=== PATIENT | female | born 1990 | race Two or more races ===

== ENCOUNTER → 2020-10-14 | Outpatient (CLI) | payer MEDICAID, OTHER ==
[~2020-10-14] MED LIST: DOCU-109 PO; FERR325T14 PO; IBUP-1060 PO; OXYC1TAB15 PO
== END ==
LOC: LAB 13:23
PROVIDERS: ATTEND Obstetrics & Gynecology
DX: Z01.812 Encounter for preprocedural laboratory examination (principal); Z20.822 Contact with and (suspected) exposure to COVID-19
CPT/HCPCS: U0003

== ENCOUNTER 2020-10-19 09:33 | Inpatient (IN) | payer MEDICAID ==
[~2020-10-19] VITALS: Ht 170.2 cm; Wt 80.3 kg
[2020-10-19] VITALS (8 sets, daily range): BP systolic 96–104; BP diastolic 53–65
[2020-10-19] MEDS ORDERED: TERBUTALINE 1 MG/ML VIAL. SQ PRN (10:00)
[2020-10-19] MEDS ORDERED: IV NORMAL SALINE 1000ML BAG 1,000 ML IV SCH ×2 (10:00→19:30)
[2020-10-19] MEDS ORDERED: LIDOCAINE 1% PF 30 ML VIAL. INJ PRN (10:00)
[2020-10-19] MEDS ORDERED: CITRIC ACID/SODIUM CITRATE 30 ML SOLUTION. PO ONE (10:00)
[2020-10-19] MEDS ORDERED: OXYTOCIN 30 UNIT/500 ML PREMIX 500 ML IV PRN ×2 (10:00→13:45)
[2020-10-19] MEDS ORDERED: 0.9 % SODIUM CHLORIDE 10 ML DISP.SYRIN. IV PRN ×2 (10:00→13:45)
[2020-10-19] MEDS ORDERED: BUTORPHANOL 2 MG/ML VIAL. IVP PRN (10:00)
[2020-10-19] MEDS ORDERED: ACETAMINOPHEN 325 MG TABLET. PO PRN ×2 (10:00→13:45)
[2020-10-19 10:32] LABS: BASO # 0.1 x10^3/uL (0.0-0.2); BASO % 1 % (0-3); EOS # 0.1 x10^3/uL (0.0-0.7); EOS % 2 % (0-3); HEMATOCRIT 30.7 % (36.0-47.0); HEMOGLOBIN 10.1 g/dL (12.0-15.5); LYMPH # 2.3 x10^3/uL (1.0-4.8); LYMPH % 26 % (24-48); MEAN CORPUSCULAR HEMOGLOBIN 27 pg (25-35); MEAN CORPUSCULAR HGB CONC 33 g/dL (31-37); MEAN CORPUSCULAR VOLUME 81 fL (79-100); MONO # 0.6 x10^3/uL (0.0-1.1); MONO % 7 % (0-9); NEUT # 5.7 x10^3/uL (1.8-7.7); NEUT % 64 % (31-73); PLATELET COUNT 233 x10^3/uL (140-400); RED BLOOD COUNT 3.78 x10^6/uL (3.50-5.40); RED CELL DISTRIBUTION WIDTH 14.8 % (11.5-14.5); WHITE BLOOD COUNT 8.8 x10^3/uL (4.0-11.0)
[2020-10-19] MEDS ORDERED: PHENYLEPHRINE in 0.9% NACL PF 1 MG/10 ML SYRINGE. IV ONE (10:49)
[2020-10-19] MEDS ORDERED: OXYTOCIN 10 UNIT/ML VIAL. ONE ×3 (10:49→12:41)
[2020-10-19] MEDS ORDERED: fentaNYL PF VIAL 100 MCG/2 ML VIAL ONE (10:49)
[2020-10-19] MEDS ORDERED: MORPHINE PF 10 MG/10 ML AMPUL. ONE (10:49)
[2020-10-19] MEDS ORDERED: 0.9 % SODIUM CHLORIDE 20 ML VIAL. IJ ONE (10:50)
--- NOTE | 2020-10-19 10:50 | PDOC1 ---
VEGETABLE PREPARER H&P Date of Admission: Date of Admission: Oct 19, 2020 at 09:33 History of Present Illness: EDC: 10/25/20 LMP: 01/19/20 29y @ 39.1 by L=21 presents for scheduled C/S. The pt first two deliveries were C/Ss in [facility]. The pt had a low-lying placenta which resolved 32wks. The pt also was positive for Covid in May. Otherwise the pt has had a relatively uncomplicated . PMH: Denies PSH: C/S x 2 Meds: PNV All: NKDA OBHx: TC/S x 2 SH: no tob, no EtOH FH: noncontributory Allergies: Coded Allergies: No Known Drug Allergies (Unverified , 10/19/20) Physical Exam: PE: GENERAL: No apparent distress. Alert and oriented. HEENT: Head normocephalic, atraumatic. NECK: Supple LUNGS: Clear to auscultation. HEART: RRR, S1, S2 present, pulses intact ABDOMEN: Soft, positive bowel sounds. EXTREMITIES: No cyanosis or edema. NEUROLOGIC: Normal speech, normal tone PSYCHIATRIC: Normal affect, normal mood. SKIN: No ulceration. FHT: 150s +acels/no decels/mLTV [place]: 15-20 min Labs: Laboratory Tests Test 10/19/20 10:02 White Blood Count 8.8 x10^3/uL (4.0-11.0) Red Blood Count 3.78 x10^6/uL (3.50-5.40) Hemoglobin 10.1 g/dL (12.0-15.5) L Hematocrit 30.7 % (36.0-47.0) L Mean Corpuscular Volume 81 fL (79-100) Mean Corpuscular Hemoglobin 27 pg (25-35) Mean Corpuscular Hemoglobin Concent 33 g/dL (31-37) Red Cell Distribution Width 14.8 % (11.5-14.5) H Platelet Count 233 x10^3/uL (140-400) Neutrophils (%) (Auto) 64 % (31-73) Lymphocytes (%) (Auto) 26 % (24-48) Monocytes (%) (Auto) 7 % (0-9) Eosinophils (%) (Auto) 2 % (0-3) Basophils (%) (Auto) 1 % (0-3) Neutrophils # (Auto) 5.7 x10^3/uL (1.8-7.7) Lymphocytes # (Auto) 2.3 x10^3/uL (1.0-4.8) Monocytes # (Auto) 0.6 x10^3/uL (0.0-1.1) Eosinophils # (Auto) 0.1 x10^3/uL (0.0-0.7) Basophils # (Auto) 0.1 x10^3/uL (0.0-0.2) Laboratory Tests 10/19/20 10:02 Laboratory Tests 10/19/20 10:02 Assessment & Plan: A/P 29y @ 39.1 by L=21 1.) Prev C/S x 2 scheduled for RLTCS/BTL 2.) DPS consent signed 09/06/20 3.) Low-lying anterior placenta - resolved 4.) H/o Covid 05/21/20 5.) Anemia Hgb 10.3 6.) Fetus cat I FHT 7.) GBS unk collect but specimen not sent 8.) TDAP 08/11/20 YELENA ANDERSON MD Oct 19, 2020 10:50
[2020-10-19] MEDS ORDERED: ONDANSETRON PF 4 MG/2 ML VIAL. ONE (10:56)
[2020-10-19] MEDS ORDERED: ceFAZolin 2GM PREMIX 2 GM/50 ML BAG IV ONE (11:00)
[2020-10-19] MEDS: IV RINGERS,LACTATED 1000ML 1,000 ML IV SCH ×5 (11:04→19:31)
[2020-10-19 11:49] LABS: BILIRUBIN,URINE NEGATIVE (NEG); COLOR,URINE YELLOW; NITRITE,URINE NEGATIVE (NEG); PH,URINE 7.5 (<5.0-8.0); PROTEIN,URINE NEGATIVE (NEG-TRACE); UROBILINOGEN,URINE 0.2 mg/dL (0.2 mg/dL)
[2020-10-19 11:55] LABS: CLARITY,URINE HAZY
[2020-10-19 11:58] LABS: BACTERIA,URINE MODERATE /HPF (0-FEW); RBC,URINE OCC /HPF (0-2)
--- NOTE | 2020-10-19 13:43 | PDOC4 ---
OPERATIVE NOTE: PreOp Dx: 1.) IUP @ 39.1 by L=21, 2.) Prev C/S x 2, 3.) DPS consent signed 09/06/20, 4.) Low-lying anterior placenta resolved, 5.) H/o Covid 05/21/20, 6.) Anemia, 7.) GBS unk PostOp Dx: same Procedure: RLTCS/BTL Surgeon: Steve Anderson Anesthesia: Spinal EBL: 700 cc Fluids: 1400 cc UOP: 350 cc Complications: None Findings: viable female delivered at 1220. Wt 7 lb 14 oz. APGARS 8/9. Nml appearing uterus, tubes and ovaries Path: Cord blood, bilateral tubal segments YELENA ANDERSON MD Oct 19, 2020 13:43
[2020-10-19] MEDS ORDERED: DOCUSATE SODIUM 100 MG CAPSULE. PO PRN (13:45)
[2020-10-19] MEDS ORDERED: MMR per PROTOCOL. MC PRN (13:45)
[2020-10-19] MEDS ORDERED: BENZOCAINE 20% TOPICAL AEROSOL SPRAY 57GM CAN. TP PRN (13:45)
[2020-10-19] MEDS ORDERED: oxyCODONE/APAP 5/325 1 TAB TABLET PO PRN (13:45)
[2020-10-19] MEDS ORDERED: diphenhydrAMINE ORAL ELIXIR 12.5 MG/5 ML ML PO PRN (13:45)
[2020-10-19] MEDS ORDERED: TDaP (Adacel) per PROTOCOL. MC PRN (13:45)
--- NOTE | 2020-10-19 14:07 | OP ---
DATE OF SURGERY: 10/19/2020 PREOPERATIVE DIAGNOSES: 1. Intrauterine at 39 weeks and 1 day by LMP equal to 21-week ultrasound. 2. Previous section x 2. 3. Desires permanent sterilization. 4. Low lying anterior placenta, resolved. 5. History of COVID on 05/21/2020 with negative screening on admission. 6. Anemia. 7. Group B Streptococcus unknown. POSTOPERATIVE DIAGNOSES: 1. Intrauterine at 39 weeks and 1 day by LMP equal to 21-week ultrasound. 2. Previous section x 2. 3. Desires permanent sterilization. 4. Low lying anterior placenta, resolved. 5. History of COVID on 05/21/2020 with negative screening on admission. 6. Anemia. 7. Group B Streptococcus unknown. PROCEDURE: Repeat low transverse with bilateral tubal ligation. SURGEON: Gary Anderson MD. ANESTHESIA: Spinal. ESTIMATED BLOOD LOSS: 700 mL. FLUIDS: 1400 mL. URINE OUTPUT: 350 mL. COMPLICATIONS: None. FINDINGS: Viable female delivered at 12:20 weighing 7 pounds 14 ounces with Apgars of 8 and 9. Normal appearing uterus, tubes and ovaries. PATHOLOGY: Cord blood and bilateral tubal segments. DESCRIPTION OF PROCEDURE: The patient was taken to the operating room where spinal anesthesia was placed without difficulty. The patient was prepped and draped in normal sterile fashion. A Pfannenstiel skin incision was made through her previous incision and carried down to underlying layer of fascia. The fascia was then nicked in the midline. The fascial incision was then extended laterally with Chao scissors. A superior aspect of fascial incision was then grasped with Sabina clamps, elevated and underlying rectus muscle was dissected off with the scalpel. Attention was then turned to the inferior aspect of fascial incision, which was grabbed with Sabina clamps, elevated and underlying rectus muscle was dissected off with Chao scissors. At that point, the midline of the rectus muscle was identified and . The peritoneum was then grasped with 2 hemostats, tented up and Metzenbaum scissors were used to enter the peritoneal cavity sharply. Digital examination of the peritoneal cavity revealed minimal adhesions. At that point, the peritoneal incision was then extended superiorly and inferiorly with good visualization of the bladder with traction and countertraction. At that point, Amando ring was then placed into the abdomen to better visualize the lower uterine segment. Metzenbaum scissors were used to create a bladder flap. At that point, the lower uterine segment was then incised in transverse fashion with the scalpel. The hysterotomy was then extended with traction and countertraction. The head was then flexed and brought to the hysterotomy. The rest of the infant was delivered atraumatically. The cord was double clamped and cut and infant was handed over to the awaiting metal weigher. Placenta was then removed manually. The uterus was then cleared of all clots and debris. Uterine incision was then repaired with #1 chromic in a running locked fashion. A second layer of the same suture was used to imbricate. Good hemostasis was noted. At that point, the uterus was exteriorized to allow for the tubal to be performed. The left tube was then identified and followed out to the fimbria. The tube was then grasped with a Scammon clamp. An opening was created in avascular portion of the mesosalpinx. Two free ties of 0 gut were used to ligate the tube. This 2 cm segment of the tube was then excised and sent to pathology. The edges were made hemostatic with the Bovie. Attention was then turned to the right tube, which was followed out to the fimbria. The Palak clamp was then placed on the tube and with the Bovie, an opening was created in avascular space of the mesosalpinx below the tube. At that point, 2 free ties of plain gut were again used to ligate this segment of the tube. This 2 cm segment of the tube was excised and sent to pathology. The tube was then made hemostatic with the Bovie. At that point, the uterus was returned to the abdomen. The gutters were copiously irrigated and cleared of all clots and debris. Reexamination of the tubal sites revealed good hemostasis. The Amando ring was then removed. The peritoneum was then closed with 2-0 Vicryl in a running fashion. The muscle was reapproximated with 2-0 Vicryl in a running fashion. The fascia was then closed with 0 Vicryl in a running fashion. The skin was then closed with 3-0 Monocryl in subcuticular manner. The patient tolerated the procedure well. Sponges, laps, and needles were correct x 3. Two grams of Ancef were given prior to procedure. The patient tolerated the procedure well and was taken to recovery room in stable condition. GARY ANDERSON MD DR: TELLO/raj JOB#: [id number] / [id number]
[2020-10-19] MEDS: KETOROLAC 30 MG/ML VIAL. IVP PRN ×2 (14:19→21:46)
--- NOTE | 2020-10-19 16:00 | NUR ---
Pt to room 343 per bed from L&D. Assessment completed at 1620, frequent VS started and call light within reach of patient. Pt. denied desire for ice chips or ice water at this time. Will continue to monitor and support.
[2020-10-19] MEDS: FERROUS SULFATE 325 MG TABLET. PO SCH (17:00)
[2020-10-20] VITALS (7 sets, daily range): BP systolic 86–111; BP diastolic 45–62
[2020-10-20] MEDS: FERROUS SULFATE 325 MG TABLET. PO SCH ×2 (07:50→16:36)
[2020-10-20] MEDS: PRENATAL MULTIVITAMIN TABLET. PO SCH (07:50)
[2020-10-20] MEDS: IBUPROFEN 400 MG TABLET. PO PRN ×2 (07:51→16:36)
[2020-10-20] MEDS: oxyCODONE/APAP 5/325 1 TAB TABLET PO PRN (07:51)
[2020-10-20 08:32] LABS: HEMATOCRIT 27.4 % (36.0-47.0); HEMOGLOBIN 8.9 g/dL (12.0-15.5); RED BLOOD COUNT 3.36 x10^6/uL (3.50-5.40); RED CELL DISTRIBUTION WIDTH 14.9 % (11.5-14.5); WHITE BLOOD COUNT 7.6 x10^3/uL (4.0-11.0)
[2020-10-20] MEDS ORDERED: MULTIVITAMIN with MINERAL TABLET. PO SCH (09:00)
--- NOTE | 2020-10-20 11:46 | PDOC ---
MANUFACTURING FINANCE MANAGER PROGRESS NOTE Date of Service: DATE: 10/20/20 TIME: 11:45 Subjective: Pt with good pain control. Mariah PO. Voiding. Minimal lochia Objective: Vital Signs: Vital Signs Date Time Temp Pulse Resp B/P (MAP) Pulse Ox O2 Delivery O2 Flow Rate FiO2 10/19/20 16:20 98.5 75 18 99/59 (72) 97 Room Air 98.5 Vital Signs Date Time Temp Pulse Resp B/P (MAP) Pulse Ox O2 Delivery O2 Flow Rate FiO2 10/20/20 08:51 97 Room Air 10/20/20 07:45 98.4 77 16 97/55 (69) 98.4 Labs: Laboratory Tests Test 10/20/20 08:23 White Blood Count 7.6 x10^3/uL (4.0-11.0) Red Blood Count 3.36 x10^6/uL (3.50-5.40) L Hemoglobin 8.9 g/dL (12.0-15.5) L Hematocrit 27.4 % (36.0-47.0) L Mean Corpuscular Volume 82 fL (79-100) Mean Corpuscular Hemoglobin 27 pg (25-35) Mean Corpuscular Hemoglobin Concent 33 g/dL (31-37) Red Cell Distribution Width 14.9 % (11.5-14.5) H Platelet Count 186 x10^3/uL (140-400) Laboratory Tests 10/20/20 08:23 Laboratory Tests 10/20/20 08:23 Physical Exam: GENERAL: No apparent distress. Alert and oriented. HEENT: Head normocephalic, atraumatic. NECK: Supple LUNGS: Clear to auscultation. HEART: RRR, S1, S2 present, pulses intact ABDOMEN: Soft, positive bowel sounds. EXTREMITIES: No cyanosis or edema. NEUROLOGIC: Normal speech, normal tone PSYCHIATRIC: Normal affect, normal mood. SKIN: No ulceration. FFNT below umb Inc: C/D/I No C/C/E Assessment & Plan: A/P 29y POD #1 s/p RLTCS/BTL 1.) PO doing well 2.) H/o Covid 05/21/20 screen neg for admission 3.) Anemia Hgb 10.1 -> 8.9 4.) TDAP 08/11/20 5.) Cont PO care ANDERSON,YELENA B MD Oct 20, 2020 11:46
--- NOTE | 2020-10-20 15:09 | NUR ---
Patients dressing was removed today by Dr Freeman. Incision intact with no signs of dehiscence noted. No new drainage noted at this time. lap machine tender to the touch. Will continue to monitor.
[2020-10-21 00:05] VITALS: BP 104/63
[2020-10-21] MEDS: IBUPROFEN 400 MG TABLET. PO PRN ×2 (00:52→07:59)
[2020-10-21 05:58] VITALS: BP 99/63
[2020-10-21] MEDS: PRENATAL MULTIVITAMIN TABLET. PO SCH (07:57)
[2020-10-21] MEDS: FERROUS SULFATE 325 MG TABLET. PO SCH (07:57)
[2020-10-21] MEDS: oxyCODONE/APAP 5/325 1 TAB TABLET PO PRN (07:58)
[2020-10-21] MEDS ORDERED: OXYC1TAB15 PO (10:16)
[2020-10-21] MEDS ORDERED: DOCU-109 PO (10:16)
[2020-10-21] MEDS ORDERED: FERR325T14 PO (10:16)
[2020-10-21] MEDS ORDERED: IBUP-1060 PO (10:16)
--- NOTE | 2020-10-21 10:37 | PDOC ---
TOUR COORDINATOR PROGRESS NOTE Date of Service: DATE: 10/21/20 TIME: 10:36 Subjective: Pt with good pain control. Mariah PO. Voiding. Minimal lochia Objective: Vital Signs: Vital Signs Date Time Temp Pulse Resp B/P (MAP) Pulse Ox O2 Delivery O2 Flow Rate FiO2 10/20/20 07:45 98.4 77 16 97/55 (69) 97 98.4 10/20/20 07:51 Room Air Vital Signs Date Time Temp Pulse Resp B/P (MAP) Pulse Ox O2 Delivery O2 Flow Rate FiO2 10/21/20 07:58 18 Room Air 10/21/20 05:58 98.4 73 99/63 (75) 95 98.4 Physical Exam: GENERAL: No apparent distress. Alert and oriented. HEENT: Head normocephalic, atraumatic. NECK: Supple LUNGS: Clear to auscultation. HEART: RRR, S1, S2 present, pulses intact ABDOMEN: Soft, positive bowel sounds. EXTREMITIES: No cyanosis or edema. NEUROLOGIC: Normal speech, normal tone PSYCHIATRIC: Normal affect, normal mood. SKIN: No ulceration. FFNT below umb Inc: C/D/I No C/C/E Assessment & Plan: A/P 29y POD #2 s/p RLTCS/BTL 1.) PO doing well 2.) H/o Covid 05/21/20 screen neg for admission 3.) Anemia Hgb 10.1 -> 8.9 4.) TDAP 08/11/20 5.) Cont PO care YELENA ANDERSON MD Oct 21, 2020 10:37
[2020-10-21 14:00] VITALS: BP 101/59
--- NOTE | 2020-10-21 14:45 | NUR ---
Discharge and follow up instructions reviewed and given to patient along with RX x4. Pt denied any complaints or questions at this time. Pt taken out of the hospital per w/c with her S/o and her by her side.
--- NOTE | 2020-10-22 08:45 | DS ---
DATE OF DISCHARGE: 10/21/2020 ADMISSION DIAGNOSES: 1. Intrauterine at 39 weeks and 1 day by LMP equal to a 20-week ultrasound. 2. Previous section x 2. 3. Desires permanent sterilization. 4. Low anterior placenta, resolved. 5. History of COVID in May with negative screen on admission. 6. Anemia. 7. GBS unknown. DISCHARGE DIAGNOSES: 1. Intrauterine at 39 weeks and 1 day by LMP equal to a 20-week ultrasound. 2. Previous section x 2. 3. Desires permanent sterilization. 4. Low anterior placenta, resolved. 5. History of COVID in May with negative screen on admission. 6. Anemia. 7. GBS unknown. PROCEDURE: Repeat lower transverse with bilateral tubal ligation. BRIEF HOSPITAL COURSE: The patient is a 29-year-old 3, para 2-0-0-2, at 39 weeks and 1 day by LMP equal to a 20-week ultrasound, who presented for a scheduled . The patient had had 2 previous C-sections and on [facility]. Of note, the patient had a low lying placenta, which resolved by 32 weeks. In May, the patient had a positive COVID. She on screening and on admission had a negative COVID. Otherwise, the patient has had a relatively uncomplicated . The patient underwent said procedure on 10/19/2020. See operative note for full detail. By postop day #2, the patient was meeting all discharge criteria and was subsequently discharged home. Of note, the patient's hemoglobin on admission was 10.1 and postoperatively was found to be 8.9. DISCHARGE INSTRUCTIONS: The patient was told not to lift anything greater than 20 pounds, have pelvic rest for 6 weeks, and not to drive on narcotics. The patient is to call if she had fevers, chills, nausea, vomiting, abdominal pain or any additional questions or concerns. FOLLOWUP APPOINTMENT: The patient was to follow up on 10/27/2020 at 1:00 p.m. [place] [facility] [place]. DISCHARGE MEDICATIONS: The patient was given a prescription for Percocet 5, 15 pills; Motrin 800 mg, 30 pills; ferrous sulfate 325 mg, 30 pills and Colace 100 mg, 30 pills. YELENA ANDERSON MD DR: Will JOB#: [id number] / [id number]
--- NOTE | 2020-10-25 09:12 | PATHOLOGY ---
[facility] Accession Number: [id number] . 01 Material submitted: . fallopian tube - LEFT AND RIGHT FALLOPIAN TUBES. Modifiers: bilateral . 01 Clinical history: . C/S BTL 39 WEEKS GEST . 02 Diagnosis: Bilateral tubal ligation: - Segments (2) of fallopian tube confirmed. (JPM:laundry room attendant; 10/24/2020) MBR 10/24/2020 1652 Local . 02 Electronically signed: . Tae Turcios MD, Pathologist NPI- [id number] . 01 Gross description: . The specimen is received in formalin, labeled "Riveraarana, Brayan, R and L segment fallopian tubes" and consists of 2 nonfimbriated pink kothari fallopian tube segments measuring 1.9 cm in length and 0.6 cm in diameter and 2.4 cm in length and 0.6 cm in diameter. Sectioning each shows a well-defined lumen and they are entirely submitted in A1-A2. (SDY; 10/21/2020) SYU/SYU 10/21/2020 1725 Local . 02 Pathologist provided ICD-10: Z30.2 . 02 CPT . 988549 Specimen Comment: A courtesy copy of this report has been sent to [phone] Specimen Comment: Report sent to Performed at: 01 [facility] [address], [place] [id number] MD Yoni Elliott MD Phone: [phone] Performed at: 02 [facility] [address] [place], [place] [id number] MD Tae Turcios MD Phone: [phone]
== END 2020-10-21 14:45 | disposition home or self-care (01) | DRG 785 ==
LOC: 3 SO LND 09:33 → EDUNIT# 11:00 → OBSVTOIN 13:39 → 3 NORTH 16:00
PROVIDERS: ADMIT Obstetrics & Gynecology; ATTEND Obstetrics & Gynecology
PROC: 10D00Z1 Extraction of Products of Conception, Low, Open Approach (ICD-10-PCS; principal; 2020-10-19)
PROC: 0UB70ZZ Excision of Bilateral Fallopian Tubes, Open Approach (ICD-10-PCS; 2020-10-19)
DX: O34.211 Maternal care for low transverse scar from previous cesarean delivery (principal); O99.02 Anemia complicating childbirth; D64.9 Anemia, unspecified; Z30.2 Encounter for sterilization; Z37.0 Single live birth; Z3A.39 39 weeks gestation of pregnancy; Z86.16 Personal history of COVID-19; Z20.822 Contact with and (suspected) exposure to COVID-19
CPT/HCPCS: 36415; 81001; 85025; 85027; 86592; 86850; 86900; 86901; 87086; 88302; G0378; G0379; J0690; J1885; J2274; J2370; J2405; J2590; J3010; J7120